=== PATIENT | male | born 1990 | race African-American/Black ===

== ENCOUNTER 2018-12-24 07:04 | Emergency (ER) | payer MEDICAID ==
[~2018-12-24] VITALS: Ht 190.5 cm; Wt 88.6 kg
[~2018-12-24 07:04] MED LIST: ARIP2 PO
[2018-12-24 07:07] VITALS: BP 123/85
[2018-12-24] MEDS ORDERED: METHOCARBAMOL 750 MG TABLET PO ONE (07:45)
[2018-12-24] MEDS ORDERED: ACETAMINOPHEN 500 MG TABLET PO ONE (07:45)
[2018-12-24] MEDS: KETOROLAC TROMETHAMINE 60 MG/2 ML VIAL IM ONE ×2 (08:06→08:09)
[2018-12-24] MEDS ORDERED: IBUPROFEN 800 MG TABLET PO ONE (08:15)
== END 2018-12-24 08:56 | disposition home or self-care (01) ==
LOC: EMS 07:06
DX: S39.012A Strain of muscle, fascia and tendon of lower back, initial encounter (principal); F20.9 Schizophrenia, unspecified; F17.210 Nicotine dependence, cigarettes, uncomplicated; X58.XXXA Exposure to other specified factors, initial encounter; Y93.89 Activity, other specified; Y92.89 Other specified places as the place of occurrence of the external cause; Y99.8 Other external cause status
CPT/HCPCS: 99284; 99406; J1885